=== PATIENT | female | born 1960 | race Caucasian/White ===

== ENCOUNTER 2016-12-14 15:26 | Emergency (ER) | payer SELFPAY ==
[~2016-12-14] VITALS: Ht 167.6 cm; Wt 44.7 kg
[2016-12-14 19:16] LABS: MCH 31.7 PG (29.0-34.0); MCHC 34.4 G/DL (30.0-36.0); MCV 92.2 FL (83-99); MEAN PLAT.VOLUME 10.9 uM^3 (9.5-12.4); PLATELET COUNT 127 K/uL (156-360); RBC DIS.WIDTH-CV 12.9 % (11.8-14.6); RBC DIS.WIDTH-SD 43.7 % (39-53); RED BLOOD COUNT 4.23 M/uL (3.80-5.20); WHITE BLOOD COUNT 5.3 K/uL (4.1-10.2)
[2016-12-14 19:26] LABS: CHLORIDE 111 mEq/L (99-109); POTASSIUM 4.1 mEq/L (3.7-5.4); SODIUM 144 mEq/L (136-147)
[2016-12-14 19:28] LABS: GLUCOSE 105 mg/dL (70-99)
[2016-12-14 19:29] LABS: ANION GAP 11 MEQ/L (2-14)
[2016-12-14 19:30] LABS: TOTAL BILIRUBIN 0.5 mg/dL (0.0-1.0)
[2016-12-14 19:31] LABS: ALKALINE PHOSPHATASE 68 IU/L (3-129)
[2016-12-14 19:32] LABS: GFR ESTIMATE (CALCULATED) > 59 mL/min/
[2016-12-14 19:33] LABS: UREA NITROGEN (BUN) 19 mg/dL (9-23)
[2016-12-14 19:38] LABS: TROP-I INTERPRETATION NEGATIVE; TROPONIN-I < 0.01 ng/mL (0.0-0.30)
[2016-12-14] MEDS ORDERED: XANAX0.5 MG PO (21:09)
[2016-12-14 21:38] VITALS: BP 124/77
== END 2016-12-14 21:39 | disposition home or self-care (01) ==
LOC: EME 15:26
PROVIDERS: Nurse Practitioner Family
DX: F41.9 Anxiety disorder, unspecified (principal); F32.9 Major depressive disorder, single episode, unspecified; Z79.899 Other long term (current) drug therapy; M81.0 Age-related osteoporosis without current pathological fracture
CPT/HCPCS: 80053; 81003; 84484; 85027; 93005; 99281; 99284; J2060; J7030

== ENCOUNTER 2016-12-22 01:07 | Emergency (ER) | payer BC ==
[~2016-12-22] VITALS: Ht 167.6 cm; Wt 47.9 kg
[~2016-12-22 01:07] MED LIST: XANAX0.5 MG PO
[2016-12-22] MEDS ORDERED: ATIVAN1 MG PO (03:23)
[2016-12-22 07:01] VITALS: BP 135/88
== END 2016-12-22 03:32 | disposition home or self-care (01) ==
LOC: EME 01:07
DX: F41.9 Anxiety disorder, unspecified (principal); F32.9 Major depressive disorder, single episode, unspecified; Z76.0 Encounter for issue of repeat prescription
CPT/HCPCS: 93005; 99281; 99283

== ENCOUNTER 2016-12-29 01:19 | Emergency (ER) | payer BC ==
[~2016-12-29] VITALS: Ht 167.6 cm; Wt 47.1 kg
[~2016-12-29 01:19] MED LIST changes: +ATIVAN1 MG PO
[2016-12-29] MEDS ORDERED: ATIVAN1 MG PO (02:06)
[2016-12-29 02:27] VITALS: BP 162/82
== END 2016-12-29 02:28 | disposition home or self-care (01) ==
LOC: EME 01:19
DX: Z76.0 Encounter for issue of repeat prescription (principal); F41.9 Anxiety disorder, unspecified; Z76.5 Malingerer [conscious simulation]
CPT/HCPCS: 99281; 99283